=== PATIENT | female | born 1940 | race Caucasian/White ===

== ENCOUNTER 2017-08-15 10:34 | Day surgery (SDC) | payer MEDICARE, OTHER ==
[2017-08-15] MEDS ORDERED: LIDOCAINE 1% W/EPI 1:200,000 MPF 30ML SQ ONE (14:00)
--- NOTE | 2017-08-16 07:05 | Operative Note ---
DATE: 08/15/2017. 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 PROCEDURE: Excisional biopsy of painful neoplasm of the right ring finger. STAFF SURGEON: Freeman George M.D. ANESTHESIA: Local. PREPARATION: ChloraPrep. INDIVIDUAL CONSIDERATIONS: None. DESCRIPTION OF PROCEDURE: The patient was taken to the operating room and placed supine on the operating table. Her right arm was prepped and draped in the usual fashion. The patient had 1% Lidocaine with epinephrine infiltrated dorsally over the skin of the finger between the MP and the PIP joint. The patient had a fungating neoplasm in the dorsal skin. An elliptical incision was then made. It did not permeate and invade into the underlying subcutaneous tissue or even on top of the extensor mechanism. This was removed in toto and sent for specimen. After irrigation I went ahead and just approximated the skin with 4-0 nylon, and a sterile bulky compressive dressing was applied. The patient tolerated the procedure well. Needle and sponge counts were correct. Estimated blood loss was minimal. She was taken back to Recovery in good condition. There were no complications. JOB NUMBER: [id number] cc: Partha Turner M.D. MTDJanet
== END 2017-08-15 13:10 | disposition home or self-care (01) ==
LOC: SUR 10:34
PROVIDERS: ATTEND Orthopaedic Surgery
DX: C44.622 Squamous cell carcinoma of skin of right upper limb, including shoulder (principal); L85.8 Other specified epidermal thickening; E03.9 Hypothyroidism, unspecified; I10 Essential (primary) hypertension